=== PATIENT | female | born 1940 | race Caucasian/White ===

== ENCOUNTER 2018-03-17 07:43 | Day surgery (SDC) | payer MEDICARE, BC ==
--- NOTE | 2018-03-11 16:29 | HP ---
PREOPERATIVE HISTORY AND PHYSICAL: DATE OF SURGERY/ADMISSION: 03/17/18 [facility] DATE OF OFFICE VISIT/ENCOUNTER: 03/11/18 ATTENDING SURGEON: Hanna Snell MD * (DICTATED BY JANN ROBERTSON) PROCEDURE: Right wrist carpal tunnel release, ulnar nerve decompression at the wrist. CHIEF COMPLAINT: Numbness and tingling in right hand. HISTORY OF PRESENT ILLNESS: This is a 77-year-old female who complains of numbness and tingling in her right hand, small, ring, and middle fingers for the past several months. She is not complaining of any pain. She reports that she pulled a muscle and then started having numbness after that. The injury occurred in winter time. She had a nerve conduction study performed down in [place] and it showed moderate carpel tunnel syndrome on the right. She says the symptoms are present all of the time. She does not have any neck pain associated with it. She is bothered enough by the numbness and tingling that she is interested in pursuing surgical intervention at this time. PAST MEDICAL HISTORY: Hypertension. PAST SURGICAL HISTORY: 1. Hysterectomy. 2. Right little finger cyst excision. 3. Bilateral cataract removal. 4. Nodules removed from left eye. 5. Tooth extraction. CURRENT MEDICATIONS: 1. Aspirin 81 mg daily. 2. Maxzide-25 37.5/25 mg every other day. 3. Multivitamin daily. 4. Oxytrol for Women 3.9 mg per 24 hours. ALLERGIES: No known drug allergies. FAMILY MEDICAL HISTORY: Diabetes and cancer. SOCIAL HISTORY: The patient is retired. She lives with her . She is a former smoker. She quit in 1993, prior to that she smoked less than a pack per day. She denies recreational drug use and does not drink alcohol. REVIEW OF SYSTEMS: General: Negative for fevers, chills, night sweats, unexplained weight loss/gain. No known anesthesia problems. HEENT: Negative for headache, lightheadedness, syncopal episodes, visual changes. Integumentary : Negative for abrasions, lesions, open wounds. Cardiothoracic: Negative for _ ____ chest pain, palpitations, edema. Respiratory: Negative for shortness of breath with exertion, chronic cough, or wheezing. GI: Negative for nausea, vomiting, diarrhea, constipation, GERD. : Negative for nocturia, urinary frequency/urgency, history of UTIs, kidney problems. Musculoskeletal: Positive for current complaint. Negative for chronic or intermittent back pain or history of fractures. Neurological: Negative for history of seizure, stroke , poor balance. Endocrine: Negative for diabetes and thyroid issues. Hematologic: Negative for easy bruising, anemia, bleeding disorders, history of DVT. Infectious Disease: Negative for history of MRSA, hepatitis C, HIV. PHYSICAL EXAMINATION GENERAL: Well-developed, well-nourished, 77-year-old female in no acute distress. VITAL SIGNS: Height 5 feet 6 inches, weight 171 pounds. Pulse rate 74, blood pressure 148/86. HEENT: Normocephalic, atraumatic. Pupils are equal, round, and reactive to light and accommodation. Extraocular movements are intact. Throat is clear. NECK: Supple. No palpable lymph nodes. PULMONARY: Lungs are clear to auscultation bilaterally. No wheezes, rales, or rhonchi. CARDIOVASCULAR: Regular rate and rhythm. S1, S2. No murmurs, rubs, or gallops. No edema. ABDOMEN: Positive bowel sounds. Soft, nontender. MUSCULOSKELETAL: On exam of her right upper extremity, she has noticeable interosseous wasting and deformity at the base of both thumbs consistent with arthritis. She has obvious degenerative changes in all of her fingers as well her wrist motion is quite good and she can make a full fist but cannot squeeze tightly because of her arthritis. Skin is intact. She has decreased sensation in her ulnar 3 fingers and a positive Tinel's sign at the ulnar nerve of the wrist and at the median nerve of the wrist. Negative Tinel's sign at the ulnar nerve of the elbow. NEUROLOGIC: Alert and oriented x3. Cranial nerves II through XII are intact. Sensation is intact to light touch. IMPRESSION: Right carpal tunnel syndrome and ulnar nerve compression at the wrist. PLAN: The patient is scheduled to undergo a right wrist carpal tunnel release and an ulnar nerve decompression at the wrist with Dr. Snell on 03/17/18. She will return to the office 10 days postop for followup and suture removal. A prescription for Ultracet was e-scribed to the patient's pharmacy for postoperative pain management. LINN BALLARD, JANN [id number]/[facility] #: [id number] [place]
[~2018-03-17 07:43] MED LIST: Buffered Lidocaine 0.9% SYRIN* 5 ML/SYR SYRINGE INTRADERM ONE; Lidocaine 0.5%* 50 ML SDV ONE; Lidocaine 1% INJ* 10 MG/ML 30 ML SDV ONE; Propofol* 10 MG/ML 20 ML BTL IV PUSH ONE
[2018-03-17] MEDS ORDERED: oxyCODONE/Acetamin 5/325 MG* TAB PO PRN (09:44)
[2018-03-17] MEDS ORDERED: Acetaminophen TAB* 325 MG PO PRN (09:44)
[2018-03-17] MEDS ORDERED: Ibuprofen TAB* 600 MG PO PRN (09:44)
[2018-03-17] MEDS ORDERED: Ketorolac INJ* 30 MG/ML 1 ML VIAL IV PRN (09:44)
[2018-03-17] MEDS ORDERED: Naloxone* 0.4 MG/ML 1 ML VIAL IV PRN (09:44)
[2018-03-17 10:08] VITALS: BP 169/65
--- NOTE | 2018-03-17 21:45 | OP ---
DATE OF OPERATION: 03/17/18 - [facility] DATE OF : 38 SURGEON: Hanna Snell MD CLINICAL EVALUATOR: JANN Wilder ANESTHESIA: Local MAC. PRE-OP DIAGNOSIS: Median and ulnar nerve compression of the right wrist. POST-OP DIAGNOSIS: Median and ulnar nerve compression of the right wrist. OPERATIVE PROCEDURE: Median and ulnar nerve decompression of the right wrist. ESTIMATED BLOOD LOSS: Zero. TOURNIQUET TIME: Was about 20 minutes. INDICATIONS FOR PROCEDURE: Nica is a 77-year-old female with numbness and tingling in all of the fingers on her right hand. She has clinically Tinel's sign of the median nerve of the wrist and the ulnar nerve of the wrist and she presents for decompression of both nerves. DESCRIPTION OF PROCEDURE: The patient was brought to the operating room, was given a sedation anesthetic and a local infiltration of 10 cc of 1% plain lidocaine at the palm and wrist of her right hand. Skin of her right hand and forearm were prepped and draped in the usual sterile fashion. The hand and forearm were exsanguinated and the tourniquet elevated to 250 mmHg. A longitudinal incision was made in the palm and then a Zig-Zag incision made across the wrist creases. We dissected through the subcutaneous tissue sharply down to transverse carpal ligament. The ligament was incised longitudinally with the knife and then more proximally with the scissors. The scissors were then used to carefully dissect out the ulnar nerve in the wrist and then carefully release the ulnar nerve and artery through the entirety of Guyon's canal into the mid aspect of the palm and into the distal forearm. Both nerves were in good condition with moderate amount of compression. The wound was irrigated and the skin edges were reapproximated with 4-0 nylon suture. The wound was dressed with Xeroform, 4x4, Webril, and an Aron wrap. The patient tolerated the procedure well and was brought to the recovery room in good condition. [id number]/[facility] #: [id number] [facility]
== END 2018-03-17 10:40 | disposition home or self-care (01) ==
LOC: OREAST 07:43
PROVIDERS: ATTEND Orthopaedic Surgery
DX: G56.01 Carpal tunnel syndrome, right upper limb (principal); G56.21 Lesion of ulnar nerve, right upper limb; I10 Essential (primary) hypertension
CPT/HCPCS: J2704

== ENCOUNTER 2022-09-25 07:37 | Observation (INO) ==
[~2022-09-25 07:37] MED LIST changes: -Buffered Lidocaine 0.9% SYRIN* 5 ML/SYR SYRINGE INTRADERM ONE; +Buffered Lidocaine 1% SYRIN 1 ml INTRADERM ONE; +Lactated Ringers 1000 ml BAG 1,000 ML IV SCH; -Lidocaine 0.5%* 50 ML SDV ONE; -Lidocaine 1% INJ* 10 MG/ML 30 ML SDV ONE; -Propofol* 10 MG/ML 20 ML BTL IV PUSH ONE
[2022-09-25] MEDS ORDERED: Chlorhexidine MOUTHWASH 0.12% 15 ML UDC ONE (07:51)
[2022-09-25] MEDS ORDERED: ceFAZolin 2 GM PREMIX 2 GM/50 ML BAG ONE (08:19)
[2022-09-25] MEDS ORDERED: Rocuronium 50 mg VIAL 10 mg/ml 5 ml VIAL (50 mg) ONE ×2 (08:36→11:04)
[2022-09-25] MEDS ORDERED: Lidocaine 2% PF 5 ML VIAL ONE (08:37)
[2022-09-25] MEDS ORDERED: fentaNYL 100 mcg/2 ml 50 MCG/ML VIAL ONE (08:37)
[2022-09-25] MEDS ORDERED: Midazolam 2 mg/2 ml VIAL 1 mg/ml 2 ml VIAL (2 mg) ONE (08:37)
[2022-09-25] MEDS ORDERED: Propofol 10 MG/ML 20 ML BTL ONE (08:37)
[2022-09-25] MEDS ORDERED: Lidocaine 2% w EPI 1:100,000 20 ML MDV VIAL ONE (09:50)
[2022-09-25] MEDS ORDERED: Thrombin 5,000 UNITS 1 APPLIC KIT - topical use - TOPICAL ONE (09:50)
[2022-09-25] MEDS ORDERED: Gelfoam Sponge SIZE 100 SPONGE ONE (09:50)
[2022-09-25] MEDS ORDERED: ceFAZolin VIAL VIAL ONE (09:50)
[2022-09-25] MEDS ORDERED: HYDROcodone/ACETAMIN 5/325 mg TAB PO PRN (11:28)
[2022-09-25] MEDS ORDERED: Ondansetron 4 mg VIAL 2 MG/ML 2 ml VIAL IV PRN ×2 (11:28→11:40)
[2022-09-25] MEDS ORDERED: Senna TAB 8.6 mg TAB PO PRN (11:38)
[2022-09-25] MEDS ORDERED: Naloxone 0.4 mg VIAL 0.4 mg/ml 1 ml VIAL IV PRN (11:40)
[2022-09-25] MEDS ORDERED: fentaNYL 100 mcg/2 ml 50 MCG/ML VIAL IV PRN (11:40)
[2022-09-25] MEDS ORDERED: Lactated Ringers 1000 ml BAG 1,000 ML IV SCH (12:00)
[2022-09-25] MEDS: Carboxymethylcellulos 1% OPTH 1 AMP BOTH EYES SCH (20:39)
[2022-09-26 07:07] VITALS: BP 164/72
[2022-09-26] MEDS: Carboxymethylcellulos 1% OPTH 1 AMP BOTH EYES SCH (08:28)
[2022-09-26] MEDS ORDERED: Dextran 70/Hypromellose Tears Eye Drops 15 ml BTL (for Artificials Tears) BOTH EYES SCH (09:00)
[2022-09-27] MEDS ORDERED: Triamterene/HCTZ 75/50 mg 1 TAB PO SCH (09:00)
== END 2022-09-26 11:00 | disposition home or self-care (01) ==
LOC: OR 07:37 → SSU 07:37
PROVIDERS: ADMIT Neurological Surgery; ATTEND Neurological Surgery